=== PATIENT | female | born 1960 | race Caucasian/White ===

== ENCOUNTER 2018-03-09 19:47 | Emergency (ER) | payer OTHER ==
[~2018-03-09] VITALS: Ht 167.6 cm; Wt 107.0 kg
[~2018-03-09 19:47] MED LIST: ACIDOPHILUS1 EAC3 PO; ADVAIR 100-501 EACH INH; ALBUTEROL INH; ALPRAZOLAM2 MG PO; AMITIZA 24 MCG24 MCG PO; BACLOFEN 10MG T10 MG PO; BACTROBAN NASAL1 GM NS; BUTALB-APAP-CA1 EACH PO; CARDURA2 MG PO; CARISOPRODOL 3350 MG PO; CELEBREX 200 M200 MG PO; CELEXA20 MG PO; CHANTIX1 MG PO; COLACE100 MG PO; CONSTULOSE10 GM/15 M PO; CVS REDNESS REL OPHTHALMIC; DESYREL100 MG PO; DESYREL150 MG PO; DETROL LA4 MG PO; DILAUDID 4 MG TA4 M1 PO; DITROPAN XL15 MG PO; DYNACIN100 MG PO; FERREX 150150 MG PO; FLEET ENEMA133 ML RECTAL; FLOMAX0.4 MG PO; GLUCOPHAGE500 MG PO; HYDROMORPH; IMITREX 25 MG T25 M1 PO; IRON325 PO; JANUMET 50-5001 EACH PO; KEPPRA 500 MG500 M1 PO; LAMICTAL XR100 MG PO; LAMICTAL100 MG PO; LASIX 20 MG TAB20 MG PO; LEVOXYL100 MCG PO; LEXAPRO 10 MG T10 MG PO; LEXAPRO PO; LIDOCAINE HCL TOP; LIORESAL 10 MG10 MG PO; LIPITOR20 MG PO; LISINOPRIL5 MG PO; MACROBID 100 M100 M2 PO; MACRODANTIN50 M1 PO; MECLIZINE 25 MG25 M1 PO; MIRALAX17 GM PO; MIRALAX255 GM PO; MOVANTIK25 MG PO; MUCINEX1200 MG PO; NEURONTIN 300300 M1 PO; NEXIUM40 MG PO; NYSTATIN 1100000 U/M; OXYBUTYNIN 5 MG5 M1 PO; OXYBUTYNIN CHLO15 MG PO; OXYCODONE HCL 55 MG PO; OXYCONTIN40 MG PO; OXYCONTIN80 M1 PO; PEPCID20 MG PO; PERCOCET 5-3251 EACH PO; RESTORIL30 MG PO; ROXICODONE30 MG PO; SENNA S TABLET1 EACH PO; TRANSDERM-SCO1 PATC1 TD; VALIUM10 MG PO; VALIUM5 MG PO; VENTOLIN HFA 1818 GM INH; VITAMIN D1000 UNI2 PO; VOLTAREN GEL 1100 G2 TOP; XOPENEX0.31 MG/3 IH; ZANAFLEX6 MG PO; ZOFRAN ODT4 MG DISSOLVE; ZYRTEC 10 MG TA10 MG PO; [UNRECOGNIZED DRUG - OTHER] PO
[2018-03-09] MEDS ORDERED: ACCUNEB SO1.25 MG/1 INH (20:03)
[2018-03-09] MEDS ORDERED: FERREX 150150 MG PO (20:04)
[2018-03-09] MEDS ORDERED: FLEET ENEMA133 ML RECTAL (20:04)
[2018-03-09] MEDS ORDERED: VISINE-A EYE DR15 M1 OPHTHALMIC (20:05)
== END 2018-03-09 21:20 | disposition home or self-care (01) ==
LOC: ER 19:47
DX: F91.8 Other conduct disorders (principal); M79.7 Fibromyalgia; E05.00 Thyrotoxicosis with diffuse goiter without thyrotoxic crisis or storm; K21.9 Gastro-esophageal reflux disease without esophagitis; M48.061 Spinal stenosis, lumbar region without neurogenic claudication; G47.30 Sleep apnea, unspecified; J44.9 Chronic obstructive pulmonary disease, unspecified; M17.12 Unilateral primary osteoarthritis, left knee; Q07.00 Arnold-Chiari syndrome without spina bifida or hydrocephalus; M31.30 Wegener's granulomatosis without renal involvement; F32.9 Major depressive disorder, single episode, unspecified; F41.9 Anxiety disorder, unspecified; E11.9 Type 2 diabetes mellitus without complications; M51.36 Other intervertebral disc degeneration, lumbar region; J45.909 Unspecified asthma, uncomplicated; G43.909 Migraine, unspecified, not intractable, without status migrainosus; Z90.89 Acquired absence of other organs; Z88.6 Allergy status to analgesic agent; Z88.1 Allergy status to other antibiotic agents; Z88.7 Allergy status to serum and vaccine; Z88.4 Allergy status to anesthetic agent; Z88.0 Allergy status to penicillin; Z88.2 Allergy status to sulfonamides; Z91.048 Other nonmedicinal substance allergy status

== ENCOUNTER 2018-03-14 18:38 | Emergency (ER) | payer OTHER ==
[~2018-03-14] VITALS: Ht 167.6 cm; Wt 106.1 kg
[~2018-03-14 18:38] MED LIST changes: +ACCUNEB SO1.25 MG/1 INH; +VISINE-A EYE DR15 M1 OPHTHALMIC
== END 2018-03-14 22:24 ==
LOC: ER 18:38
DX: M54.9 Dorsalgia, unspecified (principal); G89.29 Other chronic pain; R60.0 Localized edema; G82.20 Paraplegia, unspecified; M46.20 Osteomyelitis of vertebra, site unspecified; M79.7 Fibromyalgia; E05.00 Thyrotoxicosis with diffuse goiter without thyrotoxic crisis or storm; K21.9 Gastro-esophageal reflux disease without esophagitis; M48.00 Spinal stenosis, site unspecified; I63.9 Cerebral infarction, unspecified; G47.30 Sleep apnea, unspecified; J44.9 Chronic obstructive pulmonary disease, unspecified; M17.12 Unilateral primary osteoarthritis, left knee; F32.9 Major depressive disorder, single episode, unspecified; F41.9 Anxiety disorder, unspecified; E11.9 Type 2 diabetes mellitus without complications; G43.909 Migraine, unspecified, not intractable, without status migrainosus; Z90.49 Acquired absence of other specified parts of digestive tract; M51.36 Other intervertebral disc degeneration, lumbar region; Z88.6 Allergy status to analgesic agent; Z88.8 Allergy status to other drugs, medicaments and biological substances; Z88.7 Allergy status to serum and vaccine; Z88.1 Allergy status to other antibiotic agents; Z88.4 Allergy status to anesthetic agent; Z88.0 Allergy status to penicillin; Z88.2 Allergy status to sulfonamides; Z91.048 Other nonmedicinal substance allergy status

== ENCOUNTER 2019-01-18 18:36 | Inpatient (IN) | payer OTHER ==
[~2019-01-18] VITALS: Ht 167.6 cm; Wt 112.5 kg
[~2019-01-18 18:36] MED LIST changes: -LEXAPRO 10 MG T10 MG PO; +LEXAPRO20 MG PO
[2019-01-18 18:38] VITALS: BP 114/79
[2019-01-18 20:08] LABS: ABSOLUTE NEUTROPHILS 8.8 thou/uL (1.4-8.2); EOSINOPHILS 3.8 % (0.0-3.0); HEMOGLOBIN 13.1 gm/dL (12.0-15.0); MCH 31.4 pg (26.0-34.0); MCHC 33.5 g/dL (28.0-37.0); MCV 93.7 fL (80.0-100.0); PLATELET COUNT 232 thou/uL (150-400); POLYS 74.2 % (36.0-66.0); RBC 4.16 mil/uL (4.20-5.00); RDW 14.9 % (10.5-14.5); WBC 11.9 thou/uL (4.0-11.0)
[2019-01-18 20:15] LABS: CALCIUM 9.3 mg/dL (8.5-10.1); POTASSIUM 3.8 mmol/L (3.5-5.1)
[2019-01-18 20:59] VITALS: BP 114/79
[2019-01-18 21:16] VITALS: BP 97/59
--- NOTE | 2019-01-19 04:28 | NUR ---
Patient arrived the floor with IV. A/O, calm and pleasant; VSS, afebrile. C/o pain in right food, pain medication given and worked. Photo was taken. lab reviewed. Patient in bed with eyes closed. Will keep monitoring.
[2019-01-19 05:20] VITALS: BP 113/54
[2019-01-19 05:33] LABS: HEMOGLOBIN 13.6 gm/dL (12.0-15.0); MCH 31.4 pg (26.0-34.0); MCHC 33.2 g/dL (28.0-37.0); MCV 94.5 fL (80.0-100.0); RBC 4.34 mil/uL (4.20-5.00); WBC 9.3 thou/uL (4.0-11.0)
[2019-01-19 05:52] LABS: CALCIUM 8.6 mg/dL (8.5-10.1); CREATININE 0.9 mg/dL (0.6-1.0); POTASSIUM 4.3 mmol/L (3.5-5.1)
[2019-01-19 07:42] VITALS: BP 100/61
--- NOTE | 2019-01-19 09:59 | NUR ---
Pt is requesting diet change to regular which is reasonable request. Please address with physician.
[2019-01-19 15:35] VITALS: BP 116/68
--- NOTE | 2019-01-19 16:09 | NUR ---
PT ADMITTED RELATED TO OSTEOMYELITIS, QUADRIPLEGIA. CM REVIEWED CHART AND SPOKE WITH CARE TEAM. BASED ON CHART REVIEW PT RESIDES AT [facility] IN LTC. CARE TEAM INDICATED THAT PT WILL BE HERE FOR A FEW DAY AND MAY NEED SURGICAL INTERVENTION. CLINICAL UPDATES TO BE SENT TO FACILITY. CM TO FOLLOW INDICATED WITH DC PLANNING.
--- NOTE | 2019-01-19 18:31 | H ---
[facility] [place] [address] HISTORY AND PHYSICAL Name: VIKRAM FERGUSON Room #: 451-P ADM IN M.R.#: [id number] Admission: 01/18/19 ������������������ Attend Phys: Gerry Sandy MD Discharge: ������������������ Date of : 64 Report #: [id number] THIS REPORT FOR: //name// CC: Freddie Sandy DATE OF SERVICE: 01/19/2019 INTRODUCTION: A 58-year-old white female who is a quadriplegic with a wound on her right foot. HISTORY OF PRESENT ILLNESS: This is a 58-year-old female with a spinal cord injury and osteomyelitis of her neck. She has significant neuropathy and loss of use of her legs. She has a wound on her right foot, presumably from pressure with concerns of osteomyelitis. PAST MEDICAL HISTORY: Significant for being quadriplegic, history of osteomyelitis, spinal stenosis, COPD, chronic pain syndrome, non-insulin dependent diabetic, anxiety, post-traumatic stress syndrome, depression. She also notes the patient has a history of aggressive outbursts and altered mental status. ALLERGIES: Numerous; ASPIRIN, ATROPINE, AZTREONAM, BUTORPHANOL, CENTROPHENOXINE, CIPROFLOXACIN, CYCLOPHOSPHAMIDE, DOXEPIN, ERYTHROMYCIN, FENTANYL, METHOCARBAMOL, PENICILLINS, PREDNISONE PROXIPHEN, SULFA, and VANCOMYCIN. MEDICATIONS: The patient is taking baclofen, albuterol, cetirizine, naphazoline/pheniramine. PAST SURGICAL HISTORY AND HOSPITALIZATIONS: Include kidney infection, leaky mitral valve, spinal cord injury in 1995, blood clot, chronic lower extremity edema and migraines. Previous surgeries also include shoulder surgery, back surgery and spinal fragments were removed for osteomyelitis. SOCIAL HISTORY: No history of tobacco use or alcohol. No use of recreational drugs, but there is some, she states as people wording she is drug seeking so much, about the recreational drug use. FAMILY HISTORY: Noncontributory. PHYSICAL EXAMINATION: A complete upper extremity evaluation has been done by the ER physician. I have notes, there are no changes to it. LUNGS: Unremarkable. No rales, rhonchi or wheezing. [facility] [address] [place] [address] HISTORY AND PHYSICAL Name: VIKRAM FERGUSON Room #: 451-P ADM IN M.R.#: [id number] Admission: 01/18/19 ������������������ Attend Phys: Gerry Sandy MD Discharge: ������������������ Date of : 64 Report #: [id number] HEART: Regular rate and rhythm today with no gallops or rubs. EXTREMITIES: Lower extremity exam shows she has palpable pulses for bilateral dorsalis pedis and posterior tibial. She has excellent blood flow with a wound present, sub fifth MPJ of the right foot. It is like a pear shaped wound, it is about 4 cm in length and about 1.5 cm in greatest width. The wound does track down to bone. You could feel the bone, was kind of soft and malleable. DIAGNOSTIC DATA: The x-rays also indicate osteomyelitis to the fifth metatarsal and proximal phalanx. LABORATORY DATA: Shows a white blood cell count of 11.9. She has a BUN of 19. IMPRESSION: Wound plantar right foot with osteomyelitis. PLAN: Debridement of the right foot, possible partial fifth ray resection. The patient states that she wants whatever needs to be done to be done. She is aware about going back for second surgeries. She also did mention if the fourth digit is infected, we should remove the fourth digit as well. So, she is scheduled for partial fifth ray resection. She understands that possible complications include wound healing, especially with her significant edema. ��������������������������������������������� <ELECTRONICALLY SIGNED> ���������������������������������������� By: Dorian Person DPM ��������������������������������������������� 01/19/19 1831 1726 1819 Dorian Person DPM /nt
--- NOTE | 2019-01-19 19:56 | NUR ---
ASSUMED CARE OF PATIENT AT 0715, PATIENT ALERT AND ORIENTED X4. PATIENT ON BEDREST/QUADRIPLEGIA. PATIENT C/O PAIN GENERALIZED OVER BODY. PATIENT RECEIVED MORPHINE 4 MG IV X 1 AND ZOFRAN 4 MG X [address] ANGULO HERE THIS AM, CONSULTED FOR RIGHT PLANTER WOUND. DR ANGULO RETUNRED CALL TO THIS RN A,D WILL TAKE PATIENT TO SURGERY TODAY AT 6PM FOR DEBRIDEMENT AND POSSIBLE AMPUTATION OF 5TH TOE. REPORT GIVEN TO SEGUNDO IN SURGURY EARLIER PART OF THE DAY AND RPORT GIVEN THIS PRIOR TO SURGERY MARK/RN. PATIENT INCONT. OF B/B. PATIENT HAS LEFT UPPER ARM IV WITH NS AT 125CC/HR. ISOLATION MRSA. PATIENT LEFT THE UNIT AT AROUND 1730 FOR SURGERY. WILL CONTINUE TO MONITOR. PATIENT HAS O2 AT 2 LITERS/COPD. PATIENT HAS COUGH, WILL NEED SPUTUM CULTURE.
[2019-01-19 19:57] VITALS: BP 106/50
[2019-01-20 00:19] VITALS: BP 105/50
[2019-01-20] MEDS ORDERED: KEPPRA 500 MG500 M1 PO (04:02)
[2019-01-20] MEDS ORDERED: SYNTHROID125 MC1 PO (04:04)
--- NOTE | 2019-01-20 04:23 | NUR ---
ASSUMED CARE OF PT AT 1930HRS. PT IS POST OP DAY 1 AND SURGICAL DRESSING IS DRY AND INTACT. PT IS AOX4 AND LETS NEEDS BE KNOWN. PT IS QUADRIPLEGIC AND INCT TO BOTH BOWN AND BLADDER. PT WAS TURNED EVERY 2-3 HOURS AND CLEANED. PT REPORTED SOME PAIN AND WAS TREATED WITH PRN PAIN MEDS. NO OTHER S/S OF ACUTE DISTRESS. WILL CONTINUE TO MONITOR.
[2019-01-20] MEDS ORDERED: LIORESAL 10 MG10 MG PO (04:25)
[2019-01-20] MEDS ORDERED: LASIX 20 MG TAB20 MG PO (04:25)
[2019-01-20] MEDS ORDERED: NEURONTIN 300300 M1 PO (04:26)
[2019-01-20] MEDS ORDERED: LAMOTRIGINE100 MG PO (04:26)
[2019-01-20] MEDS ORDERED: ZANAFLEX2 MG PO (04:28)
[2019-01-20 05:16] VITALS: BP 116/68
[2019-01-20 07:51] VITALS: BP 108/59
--- NOTE | 2019-01-20 10:09 | NUR ---
DISCHARGE PLANNING. PATIENT RESIDENT OF [employer] [facility]. PLAN IS FOR PATIENT TO RETURN TO HER LTC UNIT ONCE SHE IS MEDICALLY READY. UPDATED CLINICAL INFORMATION FAXED TO [facility]. FANG NOTIFIED. FOLLOWING TO ASSIST WITH DISCHARGE.
--- NOTE | 2019-01-20 14:11 | NUR ---
Received asleep on bed. Due medications given as prescribed. Falls risk- falls bundle in place. With IV at L Upper arm with NS at 80cc/hr- infusing well. On clear liquid diet- advised. A+Ox4. Quadriplegic from chest down, able to move upper extremities. Pt turned regularly. Incontinent B/B- changed as needed. On O2 at 2lpm via nasal cannula, with congestive cough. Pt on post op Day 1- complains of pain- due PRN pain killer given as prescribed with partial pain relief. Maintained on isolation due to history of MRSA. Pt asked if she can have regular diet- Asked Dr. Person, pt may have regular diet- order requested. Pt able to have lunch, tolerated well- No nausea and vomiting noted. Saw on Drs note to place Prevalon boots on pt- ordered and applied to pt, dressing seen and changed by wound team, ? wound vac- to confirm. Vital signs stable. Pt asked if she can resume Keppra, asked Dr Sandy a/w reply. With bilateral leg edema, feet maintained elavated. Pts back and sacrum checked- no pressure sores. seen by wound team.
--- NOTE | 2019-01-20 14:13 | NUR ---
CARE TEAM INDICATED THAT PT IS HAVING WOUND VAC ADMINISTERED THIS DAY. CM TO FOLLOW INDICATED [facility] DC PLANNING.
[2019-01-20 14:59] VITALS: BP 103/57
--- NOTE | 2019-01-20 15:59 | NUR ---
WOUND CONSULT; ROUNDING WITH DR JASEN BRAVO AND MONICA OUTDOOR FITNESS TRAINER. THE RIGHT FOOT WOUND BED HAS 10% SLOUGH. HEALTHY RED TISSUE OTHERWISE. THE DISCTAL PERIWOUND WAS MACERATED. RECOMMENDATIONS; CONT VAC THEREAPY. CHANGE M/W/F RN PRESENT
[2019-01-20 19:47] VITALS: BP 124/67
--- NOTE | 2019-01-21 02:51 | NUR ---
ASSUMED CARE OF PT AT 1900HRS. PT AOX4 AND CALLS FOR HELP NEEDED. PT WAS TURNED AND CLEANED EVERY 2-3 HRS. PT REPORTED SOME PAIN AND WAS TREATED WITH PRN PAIN MEDS. PT WAS ABLE TO GET COMFORTABLE AND GET SOME SLEEP. ABX TREATMENT CONTINUED. WOUNND VAC IN PLACE. NO OTHER S/S OF ACUTE DISTRESS. WILL CONTINUE TO MONITOR.
[2019-01-21 04:08] VITALS: BP 126/56
[2019-01-21 06:14] LABS: HEMOGLOBIN 13.6 gm/dL (12.0-15.0); MCH 31.4 pg (26.0-34.0); MCHC 33.1 g/dL (28.0-37.0); MCV 94.8 fL (80.0-100.0); RBC 4.32 mil/uL (4.20-5.00); RDW 14.8 % (10.5-14.5); WBC 7.9 thou/uL (4.0-11.0)
[2019-01-21 09:18] VITALS: BP 133/73
--- NOTE | 2019-01-21 13:40 | NUR ---
WOUND CARE FOLLOW UP; ROUNDING WITH DR JASEN BRAVO AND MONICA CONTRACT TECHNICIAN. ASSESSMENT OF THE WOUND VAC AND DRESSING; STAFF AND PATIENT REPORTS NO ALARMS. VAC FOAM LOOKS RAISIN LIKE, A SMALL AMOUT OF DRAINAGE NOTED. SETTINGS REMAIN UNCHANGED AT 125MMHG. THE PATIENT TOLERATES THE VAC WELL. RECOMMEDATIONS; CONTINUE POC DISCUSSED WITH KIARA
[2019-01-21 14:33] VITALS: BP 102/51
--- NOTE | 2019-01-21 14:38 | NUR ---
CARE TEAM INDICATED THAT PT WILL BE MEDICALLY STABLE TO DC BACK TO [facility] TOMORROW. CM NOTIFIED LIASION. CM TO FOLLOW INDICATED WITH DC PLANNING.
[2019-01-21 19:09] VITALS: BP 129/65
--- NOTE | 2019-01-21 19:44 | NUR ---
ASSUMED CARE OF PATIENT AT 0715, PATIENT ALERT AND ORIENTED X 4. PATIENT ON BEDREST. ISOLATION FOR MRSA. PATIENT QUADRIPLEGIA, CAN MOVE UPPER EXTREMITIES. PATIENT HAS PAIN WITH BACK, NECK, AND RIGHT FOOT, PATIENT HAS RECEIVED FENTANYL 50 MCG IV X 2, AND OXYCODONE 5 MG X 1, PATIENT STATES NOT GOOD RELIEF. THIS RN PAGED DR HOOD FOR MORE PAIN MEDS, NO RETURN CALL. PATIENT HAS LEFT UPPER ARM IV WITH NS AT 80CC/HR AND RECEIVED IV ANTIBIOTIC X 2 THIS SHIFT. PATIENT INCONT. OF B/B. RECEIVED 1 BREATHING TREATMENT X 1/PRN. DR HOOD STATES PATIENT WILL GO BACK TO THE FACILITY TOMORROW. WILL CONTINUE TO MONITOR.
--- NOTE | 2019-01-21 21:05 | PATH ---
[facility] [place] [address] PATHOLOGY RPT PROCEDURE Name: ALCIRA SEAY Room #: 451-P ADM IN M.R.#: [id number] ������������������ Admission: 01/18/19 ������������������ Date of : 64 Discharge: Report #: [id number] Path Case #: [id number] [facility] Accession Number: [id number] . 01 Material submitted: . digit - RIGHT FOOT FIFTH DIGIT. Modifiers: right, fifth . 01 Clinical history: . Osteomyelitis . 02 Diagnosis: "Right foot fifth digit", removal: - Skin of toe with focal ulceration and associated inflammation. - Underlying bone with focally increased neutrophils, findings consistent with acute osteomyelitis. . (SKM:mml; 01/21/2019) QLM/01/21/2019 . 02 Electronically signed: . Ever Inman MD, Pathologist NPI- [id number] . 01 Gross description: . The specimen is received in formalin, labeled "Alcira Seay, right foot fifth digit". Received is an amputated digit measuring 3.4 x 2.2 x 2.1 cm in greatest mentions. The bone margin is jagged in appearance. The bone and soft tissue margins are inked black. The nail is present displaying a pale davalos and grossly unremarkable appearance. The epidermal surface is light davalos to pale davalos and slightly wrinkled in appearance. A full-length longitudinal cross-section is submitted from proximal to distal aspects in cassettes A1 and A2, following decalcification. . Also received within the specimen container is an additional segment of bone displaying one jagged margin measuring 3.1 x 1.3 x 1.1 cm in greatest dimension. The opposite margin is chronically covered and overlying soft tissue. The jagged margin is inked blue. The length longitudinal cross-section is submitted in cassette A3, following decalcification. (CAA; 01/20/2019) QAC/QAC . 02 Pathologist provided ICD-10: L97.519, L08.9, M86.171 . 02 CPT . 381115, 376986 Specimen Comment: A courtesy [place] [address] PATHOLOGY RPT PROCEDURE Name: ALCIRA SEAY Room #: 451-P ADM IN M.R.#: [id number] ������������������ Admission: 01/18/19 ������������������ Date of : 64 Discharge: Report #: [id number] Path Case #: [id number] Specimen Comment: [phone], , . Specimen Comment: Report sent to ,DR HOOD / DR JAVIER Performed at: [address], [place] [id number] MD Waqas Parr MD Phone: [phone] Performed at: [address] [id number] MD Franca Lane MD Phone: [phone]
--- NOTE | 2019-01-22 02:02 | NUR ---
PATIENT AOX4 MAKES NEEDS KNOWN. RIGHT FOOT WOUND VAC IS RUNNING. BLE EDEMA +3, ELEVATED BLE.BOOTS ON BLE. PATIENT INCONTINENT PERICARE AND BARRIER CREAM APPLIED NEED. TURNED Q 2 HOURS. PATIENT IN BED ASLEEP AT THIS TIME BREATHING REGULAR AND UNLABOURED.
[2019-01-22 03:57] VITALS: BP 141/73
[2019-01-22 09:06] VITALS: BP 144/76
--- NOTE | 2019-01-22 09:51 | NUR ---
VASCULAR ACCESS CONSULTED FOR THIS PT FOR A PICC FOR LT ABX. PT IS A QUAD, HX OF DVT'S, SHOULDER SURGERY, AND HAS HAD A PORT REMOVED. RECOMMENDED A TUNNELED LINE FOR ABX FOR WATER/WASTEWATER ENGINEER TO AVOID DVT RISK IN UE. SPOKE WITH RN AND ORDER PLACED.
--- NOTE | 2019-01-22 10:33 | NUR ---
SPOKE WITH IR NURSE ABOUT PT NEEDING A TUNNELED SINGLE LUMEN FOR POSS DC TO [facility] TODAY.
--- NOTE | 2019-01-22 13:05 | NUR ---
WOUND CARE FOLLOW UP; ROUNDING WITH DR BRAVO AND MONICA MICROBIOLOGICAL LAB TECHNICIAN. WOUND IS STABLE WITH MININMAL DRAINAGE AND NO S/S OF INFECTION. PATIENTS D/C IS IMMINENT. PLAN; RESTART VAC AT FAUCILITY AFTER DISCHARGE. DISCUSSED WITH KIARA
[2019-01-22] MEDS ORDERED: MIRALAX17 GM PO (14:20)
[2019-01-22] MEDS ORDERED: MEROPENEM-500 MG/50 IVPB (14:20)
[2019-01-22] MEDS ORDERED: ACETAMINOPHEN325 M1 PO (14:20)
[2019-01-22] MEDS ORDERED: COLACE 100 MG100 MG PO (14:20)
[2019-01-22] MEDS ORDERED: OXYCODONE HCL5 M1 PO (14:20)
[2019-01-22] MEDS ORDERED: ENOXAPARIN40 MG/0.1 SUBQ (14:20)
[2019-01-22 16:20] VITALS: BP 142/86
--- NOTE | 2019-01-22 17:06 | HC ---
[facility] [place] [address] [place] [address] CONSULTATION Name: VIKRAM FERGUSON Room #: 451- ADM IN M.R.#: [id number] Admission: 01/18/19 ������������������ Attend Phys: Gerry Sandy MD Discharge: ������������������ Date of : 64 Report #: [id number] THIS REPORT FOR: //name// CC: Freddie Sandy DATE OF SERVICE: 01/20/2019 INFECTIOUS DISEASE CONSULTATION REASON FOR CONSULTATION: I was asked to evaluate concerning right neuropathic foot wound with associated osteomyelitis. HISTORY OF PRESENT ILLNESS: The patient is a 58-year-old status post spinal cord injury with incomplete quadriparesis. She has also had issues with infection in her cervical spine. She has had pressure wound to her right foot over the years. This has recurred over the last several months. Presents now with evidence of osteomyelitis involving the fifth metatarsal phalanx and fourth metatarsal. She is post-operative day #1 from surgical resection with partial ray amputation and resection of the fourth metatarsal head. She has multiple drug allergies and has been placed on clindamycin. No fever, chills or sweats. Blood glucose levels have been under reasonable control. Her pain now is under reasonable control. REVIEW OF SYSTEMS: She has had intermittent cough with clear sputum with no chest pain. No nausea or vomiting. No diarrhea. No dysuria. No other skin lesions noted. A 10-point review was otherwise negative. ALLERGIES: MULTIPLE INCLUDING ASPIRIN, ATROPINE, BUTORPHANOL, CYCLOPHOSPHAMIDE, DOXEPIN, FENTANYL, METHOCARBAMOL, NORFLEX, PREDNISONE, PROPOXYPHENE, TAPE, TETANUS, VANCOMYCIN, SULFA, PENICILLIN, CEPHALOSPORINS, CIPROFLOXACIN, AZTREONAM. MEDICATIONS: As noted on her MAR including clindamycin. PAST MEDICAL HISTORY: Cervical osteomyelitis, left parotid infection, fibromyalgia, Graves' disease, gastroesophageal reflux, glaucoma, spinal stenosis, obstructive sleep apnea, COPD, 1996 spinal cord injury, left knee osteoarthritis, Arnold-Chiari malformation, Maricarmen's granulomatosis, depression, anxiety, panic attacks, posttraumatic stress disorder, diabetes, MRSA infection of her spinal hardware, degenerative disk disease, asthma, peptic ulcer disease, arterial clot of ulnar artery, migraine headache, appendectomy, lower extremity edema, right shoulder surgery, multiple back surgeries. FAMILY HISTORY: Noncontributory. [facility] [address] [place] [address] CONSULTATION Name: VIKRAM FERGUSON Room #: 451-P [facility] IN M.R.#: [id number] Admission: 01/18/19 ������������������ Attend Phys: Gerry Sandy MD Discharge: ������������������ Date of : 64 Report #: [id number] SOCIAL HISTORY: Smoker of cigarettes. No significant alcohol intake. PHYSICAL EXAMINATION: VITAL SIGNS: She is afebrile, hemodynamically stable. GENERAL: Alert and cooperative and pleasant, in no acute distress. SKIN: Tanned. Right foot wound with a wound VAC in place. 2+ peripheral edema in lower extremities. Obese. No palpable adenopathy. EYES: Without scleral icterus. MOUTH: Without mucositis. NECK: Supple. LUNGS: Clear. HEART: Regular, without murmur, gallop or rub. ABDOMEN: Soft, nontender. No hepatosplenomegaly or mass. GENITOURINARY: External genitalia unremarkable without lesion. RECTAL: Not performed. EXTREMITIES: As noted above. PSYCHIATRY: Mood normal. NEUROLOGIC: Cranial nerves intact, paralysis below the neck with moderate strength in her upper extremities. LABORATORY STUDIES: Sodium 143, potassium 3.8, bicarbonate 25, and creatinine 0.9. Hemoglobin 13; platelet count 209,000; white count 9.3. Culture of the tissue intraoperative is pending. X-ray showed osteomyelitis of the fifth metatarsophalangeal joint and phalanx. IMPRESSION: A 58-year-old, quadriparesis with neuropathic wound to the right lateral foot, underlying osteomyelitis of the fifth digit and metatarsal along with the fourth metatarsal, postoperative day #1 from resection. Cultures are pending. 2. Chronic obstructive pulmonary disease. 3. Diabetes. 4. Incomplete quadriplegia. 5. Multiple allergies. RECOMMENDATION: We will continue IV antibiotics with meropenem. Continue wound care and offloading. Diabetic control. We will have PICC line placed and adjust antibiotics according to culture results. ��������������������������������������������� <ELECTRONICALLY SIGNED> ���������������������������������������� By: Jesús Engel MD ��������������������������������������������� 01/22/19 1706 2213 0710 Jesús Engel MD /nt
--- NOTE | 2019-01-22 19:19 | NUR ---
PT STABLE THROUGHOUT SHIFT, C/O PAIN THROUGHOUT SHIFT. PT TRANSFERRED BACK TO [facility]. ATTEMPTED TO CALL REPORT SEVERAL TIMES, SPENT 20 MINUTES ON HOLD. NO ONE EVER TOOK REPORT, SENT NOTE WITH CHART WITH UNIT PHONE NUMBER IF THEY WOULD LIKE TO CALL FOR REPORT. PT HAD TICC LINE PLACED TODAY WHICH SHE TOLERATED WELL.
--- NOTE | 2019-01-25 07:56 | HC ---
[facility] [place] [address] CONSULTATION Name: VIKRAM FERGUSON Room #: 451-P [facility] IN M.R.#: [id number] Admission: 01/18/19 ������������������ Attend Phys: Gerry Sandy MD Discharge: 01/22/19 ������������������ Date of : 64 Report #: [id number] THIS REPORT FOR: //name// CC: Freddie Sandy DATE OF SERVICE: 01/20/2019 CHIEF COMPLAINT: Right fifth ray osteomyelitis, status post resection. HISTORY OF PRESENT ILLNESS: This is a 58-year-old female patient who was admitted to the hospital with right foot plantar wound with underarms, underlying osteomyelitis. She was seen by Dr. Dorian Person, underwent a partial fifth ray resection and fourth metatarsal head resection with closure. I have been asked to see her with regard to postoperative wound care. The patient really cannot provide a lot of information about herself. She has a history of a spinal cord injury with quadriplegia, COPD, diabetes mellitus, and PTSD. PAST MEDICAL HISTORY: The patient has a history of brainstem stroke, sleep apnea, leaking mitral valve, Maricarmen's granulomatosis, migraines, and chronic lower extremity edema. SOCIAL HISTORY: The patient has no history of alcohol use. Smokes 1 pack of cigarettes per day per her history. MEDICATIONS: Include Lexapro, Zyrtec, vitamin D, Fioricet, AccuNeb, Ferrex, Fleet's enema, Visine eyedrops, and baclofen. ALLERGIES: Include ASPIRIN, ATROPINE, TETANUS TOXOID, AZTREONAM, BUTORPHANOL. CEFTRIAXONE, CIPRO, CYCLOPHOSPHAMIDE, DOXEPIN, ERYTHROMYCIN, FENTANYL, METHOCARBAMOL, NORFLEX, PENICILLIN, PREDNISONE, PROPOXYPHENE, SULFA, TAPE, TETANUS AND DIPHTHERIA TOXOID BOOSTER, VANCOMYCIN, SENSI-CARE FOAM, and SOLOSITE. REVIEW OF SYSTEMS: CONSTITUTIONAL: The patient denies fever, chills, or weight loss. NEUROLOGICAL: The patient has quadriplegia. ENT: The patient denies earache, nasal drainage, or sore throat. CARDIOVASCULAR: The patient denies chest pain, palpitations, or diaphoresis. PULMONARY: the patient denies cough or shortness of breath. GASTROINTESTINAL: The patient denies nausea, vomiting, or abdominal pain. ORTHOPEDIC: The patient is aware of the wounds on her right foot. Other systems in a 14-point review of systems are negative. [address] [address] CONSULTATION Name: VIKRAM FERGUSON Room #: 451-P DIS IN Vicente.#: [id number] Admission: 01/18/19 ������������������ Attend Phys: Gerry Sandy MD Discharge: 01/22/19 ������������������ Date of : 64 Report #: [id number] PHYSICAL EXAMINATION: VITAL SIGNS: At this time include temperature 36.7, pulse 78, respiratory rate of 18, and blood pressure of 103/57. GENERAL: This is a chronically ill-appearing female patient who appears to be in no distress. HEENT: Head normocephalic. NECK: Supple. LUNGS: Clear. HEART: Regular rhythm. ABDOMEN: Soft, obese, and nontender. EXTREMITIES: Right foot demonstrates postoperative changes with an incision on the lateral aspect of the right foot. Small area is open. The area is not infected. There is a small amount of bleeding present. LABORATORY DATA: Include sodium 144, potassium 4.3, chloride 108, CO2 25, BUN 20, and creatinine 0.9. White blood cell count 9.3 and hemoglobin of 13.0. CLINICAL IMPRESSION: 1. Surgical wound to the right foot, status post partial fifth ray resection and fourth metatarsal head resection. 2. Diabetes mellitus. 3. Quadriplegia. RECOMMENDATIONS: At this point in time, we will apply a wound VAC today. We will continue antibiotics pending culture. She will need low air loss mattress q.2 hour turning and positioning, continuation of current medication, aggressive nutritional support. I appreciate being asked to see her in consultation. ��������������������������������������������� <ELECTRONICALLY SIGNED> ���������������������������������������� By: Bao La MD ��������������������������������������������� 01/25/19 0756 [id number] Bao La MD /nt
== END 2019-01-22 19:28 | DRG 617 ==
LOC: ER 18:36 → EROBS 20:44 → 4W 20:44
PROVIDERS: Emergency Medicine; Nurse Practitioner Family; Podiatrist Foot & Ankle Surgery; Specialist; ADMIT Internal Medicine
DX: E11.69 Type 2 diabetes mellitus with other specified complication (principal); M86.8X7 Other osteomyelitis, ankle and foot; Z68.41 Body mass index [BMI] 40.0-44.9, adult; G82.50 Quadriplegia, unspecified; K21.9 Gastro-esophageal reflux disease without esophagitis; H40.9 Unspecified glaucoma; J44.9 Chronic obstructive pulmonary disease, unspecified; M19.90 Unspecified osteoarthritis, unspecified site; M17.12 Unilateral primary osteoarthritis, left knee; F32.9 Major depressive disorder, single episode, unspecified; F41.9 Anxiety disorder, unspecified; G43.909 Migraine, unspecified, not intractable, without status migrainosus; G47.33 Obstructive sleep apnea (adult) (pediatric); G89.4 Chronic pain syndrome; F43.10 Post-traumatic stress disorder, unspecified; L97.519 Non-pressure chronic ulcer of other part of right foot with unspecified severity; T14.8XXA Other injury of unspecified body region, initial encounter; M79.7 Fibromyalgia; E66.01 Morbid (severe) obesity due to excess calories; E11.621 Type 2 diabetes mellitus with foot ulcer; F17.210 Nicotine dependence, cigarettes, uncomplicated; Z90.49 Acquired absence of other specified parts of digestive tract; Z88.6 Allergy status to analgesic agent; Z88.1 Allergy status to other antibiotic agents; Z88.0 Allergy status to penicillin; Z88.2 Allergy status to sulfonamides; Z86.73 Personal history of transient ischemic attack (TIA), and cerebral infarction without residual deficits; Z88.7 Allergy status to serum and vaccine; Z88.8 Allergy status to other drugs, medicaments and biological substances; X58.XXXA Exposure to other specified factors, initial encounter; Y93.89 Activity, other specified; Y92.89 Other specified places as the place of occurrence of the external cause; Y99.8 Other external cause status; Z86.14 Personal history of Methicillin resistant Staphylococcus aureus infection; Z79.891 Long term (current) use of opiate analgesic
CPT/HCPCS: 10040; 10045; 50101; 70005

== ENCOUNTER 2019-10-14 08:19 | Emergency (ER) | payer OTHER ==
[~2019-10-14] VITALS: Ht 167.6 cm; Wt 108.9 kg
--- NOTE | ~2019-10-14 | EMS ---
[address] [address] EMS Patient Care Report Name: VIKRAM FERGUSON Room #: DEP CHRISSY Boyle#: [id number] Admission: 10/14/19 Attend Phys: Discharge: 10/14/19 Date of : 64 Report #: [id number] THIS REPORT FOR: //name// Report Transmitted: 10/14/2019 09:28 EMS Care Summary [place], [place]/[facility] Incident [id number] @ 10/14/2019 07:39 Incident Location [address] [place] [address] B Patient VIKRAM FERGUSON Female, 59 Years 1960 Patient Address [address] [place] [address] Patient History Chronic Obstructive Pulmonary Disease (COPD),Seizures,Paraplegia,Hypothyroidism,Graves' Disease,Methicillin-resistant Staphylococcus aureus (MRSA), Patient Allergies Other drug allergy, Patient Medications Valium, Hydrocodone, Bactrim, Synthroid, Chief Complaint SHOULDER PAIN Disposition Transported No Lights/[place] Dispatch Reason Traumatic Injury Transported To [facility] Narrative DISPATCHED TO A TRAUMATIC INJURY AT THE [facility]. ARRIVED ON SCENE TO FIND [address] [address] EMS Patient Care Report Name: VIKRAM FERGUSON Room #: DEP CHRISSY Boyle#: [id number] Admission: 10/14/19 Attend Phys: Discharge: 10/14/19 Date of : 64 Report #: [id number] FEMALE PATIENT ROLLING AROUND IN HER ELECTRIC WHEELCHAIR SEARCHING FOR STAFF. SHE STATED THAT HER SHOULDER "POP, CRACK, POPPED" THIS MORNING WHEN SHE TRIED TO ROLL HERSELF IN THE BED. SHE SAID THAT SHE HAD BROKEN THE SAME SHOULDER 5 YEARS AGO FALLING OUT OF HER WHEEL CHAIR. SHE SAID THAT SHE TOOK HER PRESCRIBED PAIN MEDICATION THIS MORNING AND IT DID NOT TOUCH HER PAIN. PATIENT WAS LIFTED FROM HER CHAIR TO THE COT, SECURED WITH STRAPS, AND MOVED TO THE BACK OF THE AMBULANCE. PATIENT'S VITALS WERE OBTAINED. SHE EXPLAINED THAT HER OXYGEN LEVELS ARE NORMALLY LOW DUE TO HER COPD AND DENIED ANY TROUBLE BREATHING. PATIENT'S VITALS WERE MONITORED ENROUTE TO HER HOSPITAL OF CHOICE. UPON ARRIVAL, PATIENT WAS MOVED INTO ED ROOM 1 ON THE COT AND LIFTED OVER TO THE HOSPITAL BED. PATIENT CARE WAS TURNED OVER TO ED NURSING STAFF. Initial Vitals @08:13P: 90,R: 18,BP: 93/50,Pain: 6/10,GCS: 15,CO: 7,SpO2: 88,Revised Trauma: 12, @08:02P: 93,R: 18,BP: 106/64,Pain: 6/10,GCS: 15,CO: 2,SpO2: 88,Revised Trauma: 12, Assessments @07:52MENTAL:Person Oriented,Time Oriented,Event Oriented,Place Oriented,SKIN:HEENT:Head/Face: No Abnormalities,LUNG SOUNDS:ABDOMEN:PELVIS//GI:No Abnormalities,EXTREMITIES:Right Arm: Other,Left Leg: Other,Right Leg: Other,Capillary Refill: Right Upper: < 2 Sec,Left Arm: No Abnormalities,PULSE:Radial: 2+ Normal,NEURO:No Abnormalities, Impression Extremity Pain Procedures @07:52ALS AssessmentResponse: UnchangedSucceeded Timeline 07:36,Call Received 07:36,Dispatch Notified 07:39,Dispatched 07:40,En Route 07:51,On Scene 07:52,At Patient 07:52,ALS Assessment,Response: UnchangedSucceeded, 08:01,Depart Scene 08:02,BP: 106/64 M,PULSE: 93,RR: 18 R,SPO2: 88 Ox,ETCO2: ,BG: ,PAIN: 6,GCS: 15, 08:13,BP: 93/50 M,PULSE: 90,RR: 18 R,SPO2: 88 Ox,ETCO2: ,BG: ,PAIN: 6,GCS: 15, 08:14,At Destination 08:22,Call Closed Disclaimer [address] [address] EMS Patient Care Report Name: VIKRAM FERGUSON Room #: DEP [place]#: [id number] Admission: 10/14/19 Attend Phys: Discharge: 10/14/19 Date of : 64 Report #: [id number] v1.1 Copyright 2020 [employer] This EMS Care Summary contains data elements from the applicable legal record (which may be displayed differently). It is designed to provide pertinent information for the following purposes: continuity of care, clinical quality, and state data reporting. The complete legal record is available to ED staff and administrators of the receiving hospital in ES's Patient Tracker. All data is provided "as is."
--- NOTE | ~2019-10-14 | EMS ---
[address] [address] EMS Patient Care Report Name: VIKRAM FERGUSON Room #: DEP CHRISSY Boyle#: [id number] Admission: 10/14/19 Attend Phys: Discharge: 10/14/19 Date of : 64 Report #: [id number] THIS REPORT FOR: //name// Report Transmitted: 10/14/2019 09:43 EMS Care Summary [place], [place]/[facility] Incident [id number] @ 10/14/2019 07:39 Incident Location [address] [place] [address] B Patient VIKRAM FERGUSON Female, 59 Years 1960 Patient Address [address] [place] [address] Patient History Chronic Obstructive Pulmonary Disease (COPD),Seizures,Paraplegia,Hypothyroidism,Graves' Disease,Methicillin-resistant Staphylococcus aureus (MRSA), Patient Allergies Other drug allergy, Patient Medications Valium, Hydrocodone, Bactrim, Synthroid, Chief Complaint SHOULDER PAIN Disposition Transported No Lights/[place] Dispatch Reason Traumatic Injury Transported To [facility] Narrative DISPATCHED TO A TRAUMATIC INJURY AT THE [facility]. ARRIVED ON SCENE TO FIND [address] [address] EMS Patient Care Report Name: VIKRAM FERGUSON Room #: DEP CHRISSY Boyle#: [id number] Admission: 10/14/19 Attend Phys: Discharge: 10/14/19 Date of : 64 Report #: [id number] FEMALE PATIENT ROLLING AROUND IN HER ELECTRIC WHEELCHAIR SEARCHING FOR STAFF. SHE STATED THAT HER SHOULDER "POP, CRACK, POPPED" THIS MORNING WHEN SHE TRIED TO ROLL HERSELF IN THE BED. SHE SAID THAT SHE HAD BROKEN THE SAME SHOULDER 5 YEARS AGO FALLING OUT OF HER WHEEL CHAIR. SHE SAID THAT SHE TOOK HER PRESCRIBED PAIN MEDICATION THIS MORNING AND IT DID NOT TOUCH HER PAIN. PATIENT WAS LIFTED FROM HER CHAIR TO THE COT, SECURED WITH STRAPS, AND MOVED TO THE BACK OF THE AMBULANCE. PATIENT'S VITALS WERE OBTAINED. SHE EXPLAINED THAT HER OXYGEN LEVELS ARE NORMALLY LOW DUE TO HER COPD AND DENIED ANY TROUBLE BREATHING. PATIENT'S VITALS WERE MONITORED ENROUTE TO HER HOSPITAL OF CHOICE. UPON ARRIVAL, PATIENT WAS MOVED INTO ED ROOM 1 ON THE COT AND LIFTED OVER TO THE HOSPITAL BED. PATIENT CARE WAS TURNED OVER TO ED NURSING STAFF. Initial Vitals @08:13P: 90,R: 18,BP: 93/50,Pain: 6/10,GCS: 15,CO: 7,SpO2: 88,Revised Trauma: 12, @08:02P: 93,R: 18,BP: 106/64,Pain: 6/10,GCS: 15,CO: 2,SpO2: 88,Revised Trauma: 12, Assessments @07:52MENTAL:Person Oriented,Time Oriented,Event Oriented,Place Oriented,SKIN:HEENT:Head/Face: No Abnormalities,LUNG SOUNDS:ABDOMEN:PELVIS//GI:No Abnormalities,EXTREMITIES:Right Arm: Other,Left Leg: Other,Right Leg: Other,Capillary Refill: Right Upper: < 2 Sec,Left Arm: No Abnormalities,PULSE:Radial: 2+ Normal,NEURO:No Abnormalities, Impression Extremity Pain Procedures @07:52ALS AssessmentResponse: UnchangedSucceeded Timeline 07:36,Call Received 07:36,Dispatch Notified 07:39,Dispatched 07:40,En Route 07:51,On Scene 07:52,At Patient 07:52,ALS Assessment,Response: UnchangedSucceeded, 08:01,Depart Scene 08:02,BP: 106/64 M,PULSE: 93,RR: 18 R,SPO2: 88 Ox,ETCO2: ,BG: ,PAIN: 6,GCS: 15, 08:13,BP: 93/50 M,PULSE: 90,RR: 18 R,SPO2: 88 Ox,ETCO2: ,BG: ,PAIN: 6,GCS: 15, 08:14,At Destination 08:22,Call Closed Disclaimer [address] [address] EMS Patient Care Report Name: VIKRAM FERGUSON Room #: DEP [place]#: [id number] Admission: 10/14/19 Attend Phys: Discharge: 10/14/19 Date of : 64 Report #: [id number] v1.1 Copyright 2020 [employer] This EMS Care Summary contains data elements from the applicable legal record (which may be displayed differently). It is designed to provide pertinent information for the following purposes: continuity of care, clinical quality, and state data reporting. The complete legal record is available to ED staff and administrators of the receiving hospital in ES's Patient Tracker. All data is provided "as is."
--- NOTE | ~2019-10-14 | EMS ---
[address] [address] EMS Patient Care Report Name: VIKRAM FERGUSON Room #: DEP CHRISSY Boyle#: [id number] Admission: 10/14/19 Attend Phys: Discharge: 10/14/19 Date of : 64 Report #: [id number] THIS REPORT FOR: //name// Report Transmitted: 10/15/2019 07:36 EMS Care Summary [place], [place]/[facility] Incident [id number] @ 10/14/2019 07:39 Incident Location [address] [place] [address] Patient VIKRAM FERGUSON Female, 59 Years 1960 Patient Address [address] [place] [address] Patient History Chronic Obstructive Pulmonary Disease (COPD),Seizures,Paraplegia,Hypothyroidism,Graves' Disease,Methicillin-resistant Staphylococcus aureus (MRSA), Patient Allergies Other drug allergy, Patient Medications Valium, Hydrocodone, Bactrim, Synthroid, Chief Complaint SHOULDER PAIN Disposition Transported No Lights/[place] Dispatch Reason Traumatic Injury Transported To [facility] Narrative DISPATCHED TO A TRAUMATIC INJURY AT THE [facility]. ARRIVED ON SCENE TO FIND [address] [address] EMS Patient Care Report Name: VIKRAM FERGUSON Room #: DEP CHRISSY Boyle#: [id number] Admission: 10/14/19 Attend Phys: Discharge: 10/14/19 Date of : 64 Report #: [id number] FEMALE PATIENT ROLLING AROUND IN HER ELECTRIC WHEELCHAIR SEARCHING FOR STAFF. SHE STATED THAT HER SHOULDER "POP, CRACK, POPPED" THIS MORNING WHEN SHE TRIED TO ROLL HERSELF IN THE BED. SHE SAID THAT SHE HAD BROKEN THE SAME SHOULDER 5 YEARS AGO FALLING OUT OF HER WHEEL CHAIR. SHE SAID THAT SHE TOOK HER PRESCRIBED PAIN MEDICATION THIS MORNING AND IT DID NOT TOUCH HER PAIN. PATIENT WAS LIFTED FROM HER CHAIR TO THE COT, SECURED WITH STRAPS, AND MOVED TO THE BACK OF THE AMBULANCE. PATIENT'S VITALS WERE OBTAINED. SHE EXPLAINED THAT HER OXYGEN LEVELS ARE NORMALLY LOW DUE TO HER COPD AND DENIED ANY TROUBLE BREATHING. PATIENT'S VITALS WERE MONITORED ENROUTE TO HER HOSPITAL OF CHOICE. UPON ARRIVAL, PATIENT WAS MOVED INTO ED ROOM 1 ON THE COT AND LIFTED OVER TO THE HOSPITAL BED. PATIENT CARE WAS TURNED OVER TO ED NURSING STAFF. Initial Vitals @08:13P: 90,R: 18,BP: 93/50,Pain: 6/10,GCS: 15,CO: 7,SpO2: 88,Revised Trauma: 12, @08:02P: 93,R: 18,BP: 106/64,Pain: 6/10,GCS: 15,CO: 2,SpO2: 88,Revised Trauma: 12, Assessments @07:52MENTAL:Person Oriented,Time Oriented,Event Oriented,Place Oriented,SKIN:HEENT:Head/Face: No Abnormalities,LUNG SOUNDS:ABDOMEN:PELVIS//GI:No Abnormalities,EXTREMITIES:Right Arm: Other,Left Leg: Other,Right Leg: Other,Capillary Refill: Right Upper: < 2 Sec,Left Arm: No Abnormalities,PULSE:Radial: 2+ Normal,NEURO:No Abnormalities, Impression Extremity Pain Procedures @07:52ALS AssessmentResponse: UnchangedSucceeded Timeline 07:36,Call Received 07:36,Dispatch Notified 07:39,Dispatched 07:40,En Route 07:51,On Scene 07:52,At Patient 07:52,ALS Assessment,Response: UnchangedSucceeded, 08:01,Depart Scene 08:02,BP: 106/64 M,PULSE: 93,RR: 18 R,SPO2: 88 Ox,ETCO2: ,BG: ,PAIN: 6,GCS: 15, 08:13,BP: 93/50 M,PULSE: 90,RR: 18 R,SPO2: 88 Ox,ETCO2: ,BG: ,PAIN: 6,GCS: 15, 08:14,At Destination 08:22,Call Closed Disclaimer [address] [address] EMS Patient Care Report Name: VIKRAM FERGUSON Room #: DEP [place]#: [id number] Admission: 10/14/19 Attend Phys: Discharge: 10/14/19 Date of : 64 Report #: [id number] v1.1 Copyright 2020 [employer] This EMS Care Summary contains data elements from the applicable legal record (which may be displayed differently). It is designed to provide pertinent information for the following purposes: continuity of care, clinical quality, and state data reporting. The complete legal record is available to ED staff and administrators of the receiving hospital in ES's Patient Tracker. All data is provided "as is."
[~2019-10-14 08:19] MED LIST changes: +ACETAMINOPHEN325 M1 PO; +COLACE 100 MG100 MG PO; +ENOXAPARIN40 MG/0.1 SUBQ; +LAMOTRIGINE100 MG PO; +MEROPENEM-500 MG/50 IVPB; +OXYCODONE HCL5 M1 PO; +SYNTHROID125 MC1 PO; +ZANAFLEX2 MG PO
[2019-10-14 09:38] VITALS: BP 1044/86
== END 2019-10-14 10:28 ==
LOC: ER 08:19
DX: S46.811A Strain of other muscles, fascia and tendons at shoulder and upper arm level, right arm, initial encounter (principal); K21.9 Gastro-esophageal reflux disease without esophagitis; J44.9 Chronic obstructive pulmonary disease, unspecified; J45.909 Unspecified asthma, uncomplicated; M79.7 Fibromyalgia; M19.90 Unspecified osteoarthritis, unspecified site; G43.909 Migraine, unspecified, not intractable, without status migrainosus; G47.30 Sleep apnea, unspecified; F32.9 Major depressive disorder, single episode, unspecified; F41.9 Anxiety disorder, unspecified; F17.210 Nicotine dependence, cigarettes, uncomplicated; Z90.49 Acquired absence of other specified parts of digestive tract; Z91.048 Other nonmedicinal substance allergy status; Z88.0 Allergy status to penicillin; Z88.1 Allergy status to other antibiotic agents; Z88.2 Allergy status to sulfonamides; Z88.6 Allergy status to analgesic agent; Z88.8 Allergy status to other drugs, medicaments and biological substances; X50.0XXA Overexertion from strenuous movement or load, initial encounter; Y93.89 Activity, other specified; Y92.89 Other specified places as the place of occurrence of the external cause; Y99.8 Other external cause status

== ENCOUNTER → 2020-01-21 | Outpatient (CLI) | payer OTHER | LOC: RAD 10:30 | PROVIDERS: ATTEND Anesthesiology | DX: M51.36 Other intervertebral disc degeneration, lumbar region (principal); G89.4 Chronic pain syndrome; M48.04 Spinal stenosis, thoracic region; M47.815 Spondylosis without myelopathy or radiculopathy, thoracolumbar region ==